=== PATIENT | female | born 1955 | race Caucasian/White ===

== ENCOUNTER 2024-12-25 08:45 | Day surgery (SDC) | payer MEDICARE ==
[2024-12-23 08:49] VITALS: BP 156/96
[~2024-12-25] VITALS: Ht 177.8 cm; Wt 78.2 kg
[~2024-12-25 08:45] MED LIST: IBLOOD GLUCOSE TEST STRIP 1 EA TEST VI PRN; LACTATED RINGER'S 1,000 ML IV SCH; LIDOCAINE HCL 1% 5 ML SDV INJ ONE; MIDAZOLAM HCL 5 MG/5 ML VIAL IV PRN; ZESTRIL10 MG PO; ZIAC 10-6.25 M1 EACH PO; fentaNYL citrate 100 MCG/2 ML VIAL IV PRN
[2024-12-25 08:56] VITALS: BP 142/88
--- NOTE | 2024-12-25 11:11 | NUR ---
12/25/24 Jmaes Mohan 1104: PT ARRIVED TO PACU VIA STRETCHER. PT AROUSABLE BUT DROWSY ON ARRIVAL. PT ON RA AT THIS TIME.
[2024-12-25 11:46] VITALS: BP 119/74
--- NOTE | 2024-12-26 06:18 | OR ---
[facility] [address] [place], [place] [address] Signed DATE OF OPERATION: 12/25/2024 SURGEON: Xochitl Howell MD PREOPERATIVE DIAGNOSES: 1. Personal history of colonic polyps starting in 2016 at age 60. 2. Internal hemorrhoids. 3. Tattoo at 40 cm in left colon. 4. Long redundant colon. POSTOPERATIVE DIAGNOSES: 1. 8 mm pedunculated polyp in mid right colon (snare, clip x1). 2. Biopsy x2 at 40 cm/tattoo in left colon. 3. Minimal internal hemorrhoids. PROCEDURE: Colonoscopy, snare polypectomy and application of clip x1 and hot biopsy. ESTIMATED BLOOD LOSS: None. INDICATIONS: Geovanna is a 69-year-old female, asked to see me for her third colonoscopy. I helped her in 2016 at the age of 60 for screening purposes. She had several serrated adenomatous, tubular adenomas and hyperplastic polyps removed. She had a 10 mm sessile polyp back at 40 cm. We left a tattoo at that location. She also has a long redundant colon. She took 15 mg of Versed and 275 mcg of fentanyl. We had a return in three years in 2019 at age of 63. The tattoo was fine. She had some internal hemorrhoids. She had one adenomatous and one small hyperplastic polyp removed. She took 10 mg of Versed and a large amount of fentanyl. DICTATION ENDS HERE. Xochitl Howell MD Electronically Signed By: XOCHITL HOWELL MD 12/26/24 0618 PATIENT NAME: GEOVANNA BERTRAND OPERATIVE REPORT DATE OF : 59 REPORT #: [id number] PHYSICIAN: XOCHITL HOWELL MD PCP: LUL DE GUZMAN PAC REPORT IS CONFIDENTIAL AND NOT TO BE RELEASED WITHOUT AUTHORIZATION [address] [place], [place] [address] Signed ALB/MODL /[id number] Copies: ~ Electronically Signed By: XOCHITL HOWELL MD 12/26/24 0618 PATIENT NAME: GEOVANNA BERTRAND OPERATIVE REPORT DATE OF : 59 REPORT #: [id number] PHYSICIAN: XOCHITL HOWELL MD PCP: LUL DE GUZMAN PAC REPORT IS CONFIDENTIAL AND NOT TO BE RELEASED WITHOUT AUTHORIZATION
--- NOTE | 2024-12-26 06:18 | OR ---
[facility] [place] [facility] [address] [place], [place] [address] Signed DATE OF OPERATION: 12/25/2024 SURGEON: Xochitl Howell MD PREOPERATIVE DIAGNOSES: 1. Personal history of colonic polyps during 2016 at age 60. 2. Internal hemorrhoids. 3. A tattoo of 40 cm. 4. Long redundant colon. POSTOPERATIVE DIAGNOSES: 1. 8 mm pedunculated polyp at mid right colon (snare, clips x1). 2. Biopsies x2 at 40 cm in left colon/tattoo. 3. Minimal to moderate internal hemorrhoids. PROCEDURE: Colonoscopy with snare polypectomy, application of clip x1 and hot biopsy. ESTIMATED BLOOD LOSS: None. INDICATIONS: Geovanna is a 69-year-old female, asked to see me for her colonoscopy. I helped her starting in 2016 at the age of 60 for screening purposes. She had several serrated adenomatous, tubular adenomas and hyperplastic polyps removed. She had a 10 mm sessile polyp at 40 cm. We left a tattoo in this area. She also has a long redundant colon. She took 15 mg of Versed and 175 mcg of fentanyl. She came back three years later in 2019 at age of 63. The tattoo at 40 cm was fine. She did have some internal hemorrhoids. She had one adenomatous and one small hyperplastic polyp removed. She again took a large amount of Versed and fentanyl. She was awake and talking much of the time. She also had to give her Narcan on one of those occasions. We decided use monitored anesthesia care propofol infusion for this colonoscopy. Worked out very nicely. It was much easier to pass the scope and she did very well. She currently has no lower GI complaints. She talked about her fatty liver, diagnosed at age [address] Quick. There is no family history of colon cancer or polyps. She was diagnosed with a T-cell lymphoma, but her medical oncologist is following that conservatively in [place], [place]. I gave her a pamphlet on colonoscopy in the office. She understands the nature of the test. There is risk including, but not limited to gas bloating, crampy abdominal pain, bleeding, perforation requiring surgery, and missed diagnosis. We also reviewed the written instructions for the bowel prep line by line. She has done Electronically Signed By: XOCHITL HOWELL MD 12/26/24 0618 PATIENT NAME: GEOVANNA BERTRAND OPERATIVE REPORT DATE OF : 59 REPORT #: [id number] PHYSICIAN: XOCHITL HOWELL MD PCP: LUL DE GUZMAN PAC REPORT IS CONFIDENTIAL AND NOT TO BE RELEASED WITHOUT AUTHORIZATION [facility] [place] [facility] [address] [place], [place] [address] Signed well fat using her ice tea. We asked her to take some broth and to add some salt. She told me her ex- will be taking her home. She told me I can share information with her ex-. She had expressed understanding wished to proceed. PROCEDURE NOTE: Geovanna was taken into our endoscopy suite and placed in the left lateral decubitus position. She was given monitored anesthesia care propofol infusion per nursing toll booth operator. A digital rectal exam was performed. This was unremarkable. There were no external hemorrhoids. She had good sphincter tone. There were no masses. The adult colonoscope was introduced, advanced all around into the cecum under direct visualization of camera. She does have a very long redundant colon. We could easily see the appendiceal orifice and ileocecal valve. The scope was slowly withdrawn. We took pictures throughout for photodocumentation. We used our snare to divide the polyp in the mid right colon and suctioned it on the scope. We captured it for pathologic review. We went back and looked at the polypectomy site. We went ahead and placed one clip across that to help bring the mucosa together. Back at the tattoo. We took a couple biopsies with our hot biopsy forceps. Overall, we think it looks fine. No diverticulosis. The rectum was unremarkable. Upon retroflexion of scope, she does have minimal to moderate internal hemorrhoid columns. After this, the gas was suctioned out. The colonoscope removed. Geovanna tolerated procedure quite well. RECOMMENDATIONS: I will see Geovanna back in my office in 7 to 14 days to review her results. She should always use monitored anesthesia care. She will be on the 5-year rotation in the future. Xochitl Howell MD ALB/MODL /[id number] cc: NICOLLE Portillo MD Electronically Signed By: XOCHITL HOWELL MD 12/26/24 0618 PATIENT NAME: GEOVANNA BERTRAND OPERATIVE REPORT DATE OF : 59 REPORT #: [id number] PHYSICIAN: XOCHITL HOWELL MD PCP: LUL DE GUZMAN PAC REPORT IS CONFIDENTIAL AND NOT TO BE RELEASED WITHOUT AUTHORIZATION [facility] [place] [facility] [address] [facility] [place], [place] [address] Signed Copies: XOCHITL HOWELL MD ~ Electronically Signed By: XOCHITL HOWELL MD 12/26/24 0618 PATIENT NAME: GEOVANNA BERTRAND DANIELA OPERATIVE REPORT DATE OF : 59 REPORT #: [id number] PHYSICIAN: XOCHITL HOWELL MD PCP: LUL DE GUZMAN PAC REPORT IS CONFIDENTIAL AND NOT TO BE RELEASED WITHOUT AUTHORIZATION
--- NOTE | 2024-12-31 18:57 | PATH ---
[facility] [address] [facility] [place], [place] [address] Signed SPECIMEN(S): A MID RIGHT COLON POLYP SPECIMEN(S): B COLON BIOPSY AT 40 CM SPECIMEN SOURCE: A. MID RIGHT COLON POLYP B. COLON BIOPSY AT 40 CM CLINICAL HISTORY: Pre: History of polyps. Post: Long redundant colon, polyp x 1, internal hemorrhoids. FINAL PATHOLOGIC DIAGNOSIS: A. Mid right colon polyp: - Tubulovillous adenoma. - Base of stalk is free of dysplasia. - Negative for high-grade dysplasia or malignancy. B. Colon biopsy at 40 cm: - Sessile serrated adenoma. - Negative for dysplasia or malignancy. [facility] MICROSCOPIC EXAMINATION: Histologic sections of all submitted blocks are examined by light microscopy. These findings, together with the gross examination, support the pathologic diagnosis. GROSS DESCRIPTION: A. The specimen, labeled and designated "Gawf, mid right colon polyp," is received in formalin and consists of two desouza soft tissue fragments, ranging from 0.6-2.0 cm. The biggest tissue fragment is inked and sectioned. Entire specimen is submitted in (A1). B. The specimen, labeled and designated "Gawf, colon biopsy at 40 cm," is received in formalin and consists of two desouza soft tissue fragments, ranging from 0.1 cm. Entirely submitted in (B1). JS (under the direct supervision of a pathologist) The Gross Description was prepared using a voice recognition system. The report was reviewed for accuracy; however, sound-alike word errors, addition and/or deletions may occur. If there is any question about this report, please contact Client Services. ADDITIONAL NOTES: PATIENT NAME: GEOVANNA BERTRAND PATHOLOGY DATE OF : 59 REPORT #: [id number] PHYSICIAN: FRANSISCO HUNTLEY PCP: LUL DE GUZMAN PAC REPORT IS CONFIDENTIAL AND NOT TO BE RELEASED WITHOUT AUTHORIZATION [facility] [address] [facility] [place] [address] Signed Immunohistochemical and/or in situ hybridization studies if performed in this case included appropriate positive controls that reacted as expected. This test was developed and its performance characteristics determined by [facility]. It has not been cleared or approved by the U.S. Food and Drug Administration. The FDA has determined that such clearance or approval is not necessary. This test is used for clinical purposes. It should not be regarded as investigational or for research. [facility] is certified under the Clinical Laboratory Improvement Amendments of 1988 (CLIA) as qualified to perform high complexity clinical laboratory testing. PERFORMING LABORATORY: Technical component was performed by [facility], [address] [place] [id number] (CLIA# [id number]). Professional interpretation was performed by [facility], [address] [place] [id number] (CLIA#: [id number]). Diagnostician: Caleb De Jesus MD Pathologist Electronically Signed 12/31/2024 Copies: ~ PATIENT NAME: GEOVANNA BERTRAND DANIELA PATHOLOGY DATE OF : 59 REPORT #: [id number] PHYSICIAN: FRANSISCO HUNTLEY PCP: LUL DE GUZMAN PAC REPORT IS CONFIDENTIAL AND NOT TO BE RELEASED WITHOUT AUTHORIZATION
== END 2024-12-25 11:35 | disposition home or self-care (01) ==
LOC: OPS 08:45 → DS 08:45 → OPS 09:55 → DS 10:30 → OPS 11:35
PROVIDERS: ATTEND Colon & Rectal Surgery
PROC: 0DBF8ZX Excision of Right Large Intestine, Via Natural or Artificial Opening Endoscopic, Diagnostic (ICD-10-PCS; 2024-12-25)
PROC: 0DBG8ZX Excision of Left Large Intestine, Via Natural or Artificial Opening Endoscopic, Diagnostic (ICD-10-PCS; principal; 2024-12-25 09:55)
DX: K64.8 Other hemorrhoids (principal); Q43.8 Other specified congenital malformations of intestine; D12.2 Benign neoplasm of ascending colon; D12.4 Benign neoplasm of descending colon; I12.9 Hypertensive chronic kidney disease with stage 1 through stage 4 chronic kidney disease, or unspecified chronic kidney disease; N18.30 Chronic kidney disease, stage 3 unspecified; E03.9 Hypothyroidism, unspecified; C83.50 Lymphoblastic (diffuse) lymphoma, unspecified site; G47.30 Sleep apnea, unspecified; E78.5 Hyperlipidemia, unspecified; M17.12 Unilateral primary osteoarthritis, left knee; K76.0 Fatty (change of) liver, not elsewhere classified; Z86.0101 Personal history of adenomatous and serrated colon polyps; Z86.0102 Personal history of hyperplastic colon polyps; Z86.718 Personal history of other venous thrombosis and embolism; Z79.899 Other long term (current) drug therapy; Z88.0 Allergy status to penicillin
CPT/HCPCS: 811; 88305

== ENCOUNTER 2025-01-06 11:28 | Day surgery (SDC) | payer MEDICARE ==
--- NOTE | 2024-12-31 07:58 | NUR ---
PHONE CALL TO PT NO ANSWER LEFT MESSAGE.
[~2025-01-06] VITALS: Ht 177.8 cm; Wt 80.5 kg
[~2025-01-06 11:28] MED LIST changes: +CEFAZOLIN SODIUM 2 GM/20 ML SYR IV SCH; +IRBESARTAN150 MG PO; -MIDAZOLAM HCL 5 MG/5 ML VIAL IV PRN; -fentaNYL citrate 100 MCG/2 ML VIAL IV PRN
[2025-01-06 12:09] VITALS: BP 158/97
[2025-01-06] MEDS ORDERED: fentaNYL citrate 100 MCG/2 ML VIAL ONE (13:41)
[2025-01-06] MEDS ORDERED: propofoL 200 MG/20 ML VIAL ONE (13:41)
[2025-01-06] MEDS ORDERED: DEXAMETHASONE SOD PHOS 4 MG/ML VIAL ONE (13:41)
[2025-01-06] MEDS ORDERED: ondansetron HCL 4 MG/2 ML VIAL ONE (13:41)
[2025-01-06] MEDS ORDERED: IBLOOD GLUCOSE TEST STRIP 1 EA TEST VI PRN (14:00)
[2025-01-06] MEDS ORDERED: dexmedeTOMIDine HCl 200 MCG/2 ML VIAL ONE (14:00)
[2025-01-06] MEDS ORDERED: HYDROmorphone HCL 1 MG/ML SYR IV PRN (14:00)
[2025-01-06] MEDS ORDERED: NALOXONE HCL 0.4 MG SYR IV PRN ×2 (14:00→14:30)
[2025-01-06] MEDS ORDERED: KETOROLAC TROMETHAMINE 30 MG/ML VIAL IV PRN (14:00)
[2025-01-06] MEDS ORDERED: ondansetron HCL 4 MG/2 ML VIAL IV PRN ×2 (14:00→14:30)
[2025-01-06] MEDS ORDERED: FAMOTIDINE 20 MG TAB PO PRN (14:30)
[2025-01-06] MEDS ORDERED: FAMOTIDINE 20 MG/ 2 ML VIAL IV PRN (14:30)
[2025-01-06] MEDS ORDERED: LACTATED RINGER'S 1,000 ML IV SCH (14:30)
[2025-01-06] MEDS ORDERED: ondansetron HCL 4 MG TAB PO PRN (14:30)
[2025-01-06] MEDS ORDERED: HYDROCODONE/ACETA 5/325 TAB PO PRN (14:30)
--- NOTE | 2025-01-06 14:38 | NUR ---
01/06/25 1438 Chani Corey OXYGEN SATURATION REMAINS 98% ON 2L VIA NC. OXYGEN IS DISCONTINUED.
[2025-01-06 15:16] VITALS: BP 152/88
--- NOTE | 2025-01-08 09:24 | PATH ---
[facility] [address] [facility] [place], [place] [address] Signed SPECIMEN(S): A ENDOMETRIAL CURETTINGS SPECIMEN SOURCE: A. ENDOMETRIAL CURETTINGS CLINICAL HISTORY: PMB; endometrial thickening FINAL PATHOLOGIC DIAGNOSIS: Endometrium, curettage: - Inactive endometrium with benign endometrial polyps; no hyperplasia or neoplasia identified - Fragments of smooth muscle suggestive of leiomyoma [facility] MICROSCOPIC EXAMINATION: Histologic sections of all submitted blocks are examined by light microscopy. These findings, together with the gross examination, support the pathologic diagnosis. GROSS DESCRIPTION: The specimen, labeled and designated "Gawf, V, endometrial curettings," is received in formalin and consists of multiple fragments of soft desouza tissue measuring 2.4 x 2.4 x 0.4 cm in aggregate. Entirely submitted in (A1). AB (under the direct supervision of a pathologist) The Gross Description was prepared using a voice recognition system. The report was reviewed for accuracy; however, sound-alike word errors, addition and/or deletions may occur. If there is any question about this report, please contact Client Services. ADDITIONAL NOTES: Immunohistochemical and/or in situ hybridization studies if performed in this case included appropriate positive controls that reacted as expected. This test was developed and its performance characteristics determined by [facility]. It has not been cleared or approved by the U.S. Food and Drug Administration. The FDA has determined that such clearance or approval is not necessary. This test is used for clinical purposes. It should not be regarded as investigational or for research. [facility] is certified under the Clinical Laboratory Improvement PATIENT NAME: GEOVANNA BERTRAND PATHOLOGY DATE OF : 59 REPORT #: [id number] PHYSICIAN: FRANSISCO HUNTLEY PCP: LUL DE GUZMAN PAC REPORT IS CONFIDENTIAL AND NOT TO BE RELEASED WITHOUT AUTHORIZATION [address], [place] [address] Signed Amendments of 1988 (CLIA) as qualified to perform high complexity clinical laboratory testing. PERFORMING LABORATORY: Technical component was performed by [facility], [address] [place] [id number] (CLIA# [id number]). Professional interpretation was performed by [facility], [address] [place] [id number] (CLIA#:[id number]). Diagnostician: Irineo Dixon MD Pathologist Electronically Signed 01/08/2025 Copies: ~ PATIENT NAME: GEOVANNA BERTRAND PATHOLOGY DATE OF : 59 REPORT #: [id number] PHYSICIAN: FRANSISCO HUNTLEY PCP: LUL DE GUZMAN PAC REPORT IS CONFIDENTIAL AND NOT TO BE RELEASED WITHOUT AUTHORIZATION
== END 2025-01-06 15:25 | disposition home or self-care (01) ==
LOC: OPS 11:28 → DS 11:28 → OPS 11:30 → DS 11:30 → OPS 12:50
PROVIDERS: ATTEND Obstetrics & Gynecology
PROC: 0UB98ZZ Excision of Uterus, Via Natural or Artificial Opening Endoscopic (ICD-10-PCS; principal; 2025-01-06 12:50)
DX: N84.0 Polyp of corpus uteri (principal); N95.0 Postmenopausal bleeding; I10 Essential (primary) hypertension; E78.5 Hyperlipidemia, unspecified
CPT/HCPCS: 00940; J0690; J1100; J1885; J2405; J2704; J3010; J7121